=== PATIENT | male | born 1965 | race Caucasian/White ===

== ENCOUNTER 2019-03-09 09:45 | Emergency (ER) | payer BC ==
[~2019-03-09] VITALS: Ht 185.4 cm; Wt 113.4 kg
[2019-03-09 10:05] VITALS: BP_SYST 125
--- NOTE | 2019-03-09 10:05 | NUR ---
Patient to ER bed 4 to gown for evaluation. Side rails up. Report given to Matheus MANDUJANO.
--- NOTE | 2019-03-09 10:09 | NUR ---
Patient is awake, alert, and oriented x4. Patient reports falling down stairs yesterday and striking the back of his head. Patient is complaining of pressure headache 7/10, increased sensation of pressure in left eye, blurry vision in right eye, and nausea. Skin is intact, no abrasions noted to head. Patient denies vomiting, diarrhea.
--- NOTE | 2019-03-09 10:30 | NUR ---
ER Dr. Elizalde at bedside examining patient.
[2019-03-09 11:19] VITALS: BP_SYST 118
--- NOTE | 2019-03-09 11:19 | NUR ---
Patient given written and verbal discharge instructions and verbalizes understanding. ER MD discussed with patient the results and treatment provided. Patient in stable condition. ID arm band removed. Rx of tramadol given. Patient educated on pain management and to follow up with PMD. Pain Scale 0/10. Opportunity for questions provided and answered. Medication side effect fact sheet provided.
== END 2019-03-09 11:19 | disposition home or self-care (01) ==
LOC: SED 09:45
DX: S09.90XA Unspecified injury of head, initial encounter (principal); W10.8XXA Fall (on) (from) other stairs and steps, initial encounter; Y93.01 Activity, walking, marching and hiking; Y92.89 Other specified places as the place of occurrence of the external cause; Y99.8 Other external cause status
CPT/HCPCS: 70450-TC; 99284

== ENCOUNTER 2019-07-18 18:08 | Inpatient (IN) | payer BC ==
[~2019-07-18] VITALS: Ht 185.4 cm; Wt 124.7 kg
[2019-07-18 18:46] VITALS: BP_SYST 118
--- NOTE | 2019-07-18 19:00 | NUR ---
FLU SWAB COLLECTED AND SENT TO LAB
--- NOTE | 2019-07-18 20:17 | NUR ---
Pt report received. Pt c/o fever, sore throat, H/A, body aches with sudden onset last night. Pts present to bedside.
--- NOTE | 2019-07-18 20:17 | NUR ---
BROUGHT BACK TO BED #8 AND TRIAGED. REPORT GIVEN TO COLLEEN
--- NOTE | 2019-07-18 20:40 | NUR ---
DR STANTON AT BEDSIDE FOR EVALUATION
[2019-07-18] MEDS ORDERED: NACL 0.9% 1,000 ML IV ONE ×2 (20:45→23:00)
[2019-07-18] MEDS ORDERED: KETOROLAC TROMETHAMINE 30 MG VIAL IVP ONE (20:45)
--- NOTE | 2019-07-18 20:50 | NUR ---
# 18 gauge angiocath placed to RFA. Use of asceptic technique. Opsite placed over site. Blood return noted. Blood for lab to include Blood Cx and Lactic Acid drawn from site. Flushed with 10 cc of normal saline. No evidence of infiltration noted. Patient tolerated well. Specimen for Strep also collected and sent to lab.
--- NOTE | 2019-07-18 21:10 | NUR ---
Note undone in EDM - 07/18/19 at 2124 by TATY # 18 gauge angiocath placed to RFA. Use of asceptic technique. Opsite placed over site. Blood return noted. Blood for lab drawn from site. Flushed with 10 cc of normal saline. No evidence of infiltration noted. Patient tolerated well.
[2019-07-18 21:20] LABS: BASOPHILS % (AUTO) 0.3 % (0.0-2.0); HEMATOCRIT 42.6 % (36-54); HEMOGLOBIN 14.7 g/dL (14.0-18.0); LYMPHOCYTES # (AUTO) 1.3 K/uL (1.0-5.5); LYMPHOCYTES % (AUTO) 9.7 % (20.5-51.5); MEAN CORPUSCULAR HEMOGLOBIN 31 pg (27-31); MEAN CORPUSCULAR HGB CONC 35 % (32-36); MEAN CORPUSCULAR VOLUME 90 fL (79.0-98.0); MONOCYTES # (AUTO) 0.8 K/uL (0.0-1.0); MONOCYTES % (AUTO) 6.1 % (1.7-9.3); NEUTROPHILS % (AUTO) 83.9 % (40.0-70.0); PLATELET COUNT (AUTO) 210 K/uL (130-430); RED BLOOD CELL COUNT(AUTO) 4.72 MIL/uL (4.2-6.2); RED CELL DISTRIBUTION WIDTH 13.8 % (9.0-15.0); WHITE BLOOD COUNT (AUTO) 13.2 K/uL (4.8-10.8)
[2019-07-18 21:24] LABS: BILIRUBIN,URINE NEGATIVE (NEGATIVE); BLOOD, URINE NEGATIVE (NEGATIVE); CLARITY/URINE CLEAR (CLEAR); GLUCOSE,URINE NEGATIVE (NEGATIVE); KETONES,URINE NEGATIVE (NEGATIVE); LEUKOCYTE ESTERASE ,URINE NEGATIVE (NEGATIVE); NITRITE, URINE NEGATIVE (NEGATIVE); PROTEIN URINE TRACE (NEGATIVE); UROBILINOGEN,URINE 0.2 (0.2-1.0)
[2019-07-18 21:26] LABS: COLOR,URINE AMBER (YELLOW)
--- NOTE | 2019-07-18 21:34 | NUR ---
Pt verbalizes mild improvement in H/A at 01/07. Dr. March notified.
[2019-07-18 21:41] LABS: CALCIUM 8.4 mg/dL (8.4-11.0); CREATININE 1.26 mg/dL (0.55-1.30); POTASSIUM 3.1 mmol/L (3.5-5.1)
[2019-07-18 21:42] LABS: BACTERIA,URINE FEW /HPF (None Seen); MUCUS,URINE 3+ /LPF (None Seen); RBC,URINE 0-3 /HPF (0-3); WBC,URINE 0-3 /HPF (0-3)
[2019-07-18 21:46] LABS: ALBUMIN 3.6 g/dL (3.4-4.8)
[2019-07-18] MEDS ORDERED: POTASSIUM CHLORIDE 20 MEQ TAB.PRT.SR PO ONE (22:00)
[2019-07-18] MEDS ORDERED: MORPHINE 4 MG/ML INJ. SYRINGE IVP ONE (22:00)
[2019-07-18] MEDS ORDERED: AZITHROMYCIN 250 MG TABLET PO ONE (22:00)
[2019-07-18] MEDS ORDERED: ONDANSETRON HCL 4 MG/2 ML VIAL IVP ONE (22:15)
[2019-07-18] MEDS ORDERED: ONDANSETRON HCL 4 MG/2 ML VIAL ONE (22:24)
--- NOTE | 2019-07-18 22:42 | NUR ---
Dr. March at bedside to reassess pt.
--- NOTE | 2019-07-18 22:55 | NUR ---
B/P 96/54, P 84. Pt states that H/A is gradually coming back, currently at 08/10. Dr. March notified. Pt to receive another bolus of NS.
--- NOTE | 2019-07-18 23:15 | NUR ---
Improvement noted to B/P 98/63. Will continue to monitor.
--- NOTE | 2019-07-18 23:18 | NUR ---
Pt to CT via W/C in stable condition.
--- NOTE | 2019-07-18 23:30 | NUR ---
Dominique cavazos in [facility] - 07/19/19 at 0003 by SDEDAJ Pt returns from X-ray.
--- NOTE | 2019-07-18 23:30 | NUR ---
Pt returns from CT.
--- NOTE | 2019-07-18 23:56 | NUR ---
Pt c/o H/A 11/07. B/P 102/67, P 88, T 98.9. Dr. March notified of B/P, Morphine to be held. Pt to receive Imitrex.
[2019-07-19] MEDS: MORPHINE 4 MG/ML INJ. SYRINGE IVP ONE ×2 (00:05→01:54)
[2019-07-19] MEDS ORDERED: SUMAtriptan SUCCINATE 6 MG/0.5 ML VIAL SUBCUT ONE (00:15)
[2019-07-19] MEDS ORDERED: SUMAtriptan SUCCINATE 6 MG/0.5 ML VIAL ONE (00:19)
--- NOTE | 2019-07-19 00:53 | NUR ---
Pt shivering. Temp 102, P 113, B/P 124/63 , 97% SPO2 RA. Denies c/o pain. Dr. March notified.
--- NOTE | 2019-07-19 00:55 | NUR ---
Dr. March at bedside to reassess pt.
--- NOTE | 2019-07-19 01:10 | NUR ---
Dr. March explained need for Lumbar Puncture to R/O meningitis. Pt agrees to procedure and consent signed.
--- NOTE | 2019-07-19 01:25 | NUR ---
Time out performed, verified pt name and . B/P 133/58, P 109, SPO2 98% RA. Dr. March and Cornell Simon RN at bedside.
--- NOTE | 2019-07-19 01:30 | NUR ---
Pt premedicated prior to L/P with Zofran 4 mg and Morphine 4 mg IVP.
[2019-07-19] MEDS ORDERED: LIDOCAINE 1%, 20 ML MDV 20 ML ONE (01:32)
--- NOTE | 2019-07-19 01:32 | NUR ---
Consent signed for Lumbar Puncture. Time out performed with all staff involved just prior to procedure. Lumbar area cleansed with per physician. Physician numbed site with 1% Lidocaine prior to placement. Patient tolerated procedure fair. Unsuccessful L/P attempts x [address] March.
[2019-07-19] MEDS ORDERED: ONDANSETRON HCL 4 MG/2 ML VIAL IVP ONE (01:45)
[2019-07-19] MEDS ORDERED: ONDANSETRON HCL 4 MG/2 ML VIAL ONE (01:55)
[2019-07-19] MEDS ORDERED: cefTRIAXone 1 GM in D5W 50 ML IV ONE (02:15)
[2019-07-19] MEDS ORDERED: ACYCLOVIR IV 500 MG in D5W 100 ML IV ONE (02:15)
[2019-07-19] MEDS ORDERED: ACETAMINOPHEN 500 MG TABLET PO ONE (02:15)
[2019-07-19] MEDS ORDERED: AMPICILLIN SODIUM/SULBACTAM NA 1.5 GM in NS 50 ML IV ONE (02:15)
[2019-07-19] MEDS ORDERED: ACYCLOVIR SODIUM 50 MG/ML VIAL IV ONE (02:29)
[2019-07-19] MEDS ORDERED: AMPICILLIN SODIUM/SULBACTAM NA 1.5 GM VIAL ONE (02:29)
[2019-07-19] MEDS ORDERED: cefTRIAXone 1 GM VIAL ONE (02:29)
[2019-07-19] MEDS ORDERED: NACL 0.9% 1,000 ML IV ONE (02:30)
--- NOTE | 2019-07-19 03:30 | NUR ---
Pt.'s voices concern about pt.s diet during his stay in the hospital. She states that pt has Celiacs disease. Admitting Physician and oncoming shift to be notified.
[2019-07-19] MEDS: NACL 0.9% 1,000 ML IV SCH ×4 (03:42→22:38)
--- NOTE | 2019-07-19 03:51 | NUR ---
Pt AAOx4 talking with . Pt denies c/o pain but states that he feels tired. Pt remains in supine position. SPO2 fluctuates between 88% - 90% RA. Pt placed on O2 at 2 LPM/NC, SPO2 increases to 98%. B/P 99/58. PIV RFA remains patent and secure with NS at 150 mL/hr, no s/s infiltration. Despite 3 L NS boluses received, pt hasn't had the urge to urinate since the intial U/A specimen was collected at 2100. Respirations even and non-labored, BBS clear, mild pitting edema to BLE. Dr. March notified of pt status and verbal order received to place a F/C.
--- NOTE | 2019-07-19 05:00 | NUR ---
Pt voids 300 mL lashay colored urine to urinal.
--- NOTE | 2019-07-19 05:30 | NUR ---
# 16 FR Vasques catheter with use of sterile technique r/t bladder distension and to monitor I/Os. Lidocaine Viscous 2% used with lubrication for comfort. Immediate return of 800 cc lashay colored urine noted. Bedside drainage bag placed below level of bladder. Pt tolerated procedure fair. Mild bladder distension prior to F/C placement. Pt states that he feels some relief to bladder post insertion.
[2019-07-19] MEDS ORDERED: LIDOCAINE VISCOUS 2%, 15 ML UDC MM ONE (05:31)
[2019-07-19] MEDS ORDERED: LIDOCAINE VISCOUS 2%, 15 ML UDC ONE (05:37)
--- NOTE | 2019-07-19 05:51 | NUR ---
Pt.s , Sarah provides her number ([phone]) and states that she is going home for a few hours.
--- NOTE | 2019-07-19 06:21 | NUR ---
ID consultation paged Reason for consultation: Infectious Disease Was consult called: Yes Person who was notified: Ky[employer] Consulting Physician: Dr Garza Three Dimensional Map Modeler Three Dimensional Map Modeler Specialty: Infectious Disease Ordered By: Dr Ko
--- NOTE | 2019-07-19 06:30 | NUR ---
Pt resting quietly with eyes closed, even and nonlabored respirations, VSS.
--- NOTE | 2019-07-19 06:50 | NUR ---
Pt AAOx4, informed that pt able to change positions from laying supine. Pt turns to his right side, no c/o pain or discomfort, no needs verbalized at this time.
--- NOTE | 2019-07-19 07:30 | NUR ---
Pt resting quietly, easily awakened, denies c/o pain or discomfort and no needs verbalized. PIV RFA patent and secure, no s/s infiltration, with NS infusing at 150 mL/hr. F/C patent and secure with total volume of 1200 mL lashay urine to bag. Bag emptied. Temp 100.4, pt to be medicated with Tylenol per PRN admit orders. Pt report given to DELBERT Tracey.
[2019-07-19] MEDS: ACETAMINOPHEN 325 MG TABLET PO PRN (08:05)
--- NOTE | 2019-07-19 08:23 | NUR ---
Patient will be admitted to care of Dr. Ko. Admitted to tele unit. Will go to room 125A. Belongings list completed. Complete and up to date summary report printed. SBAR report to be given at bedside with opportunity for questions. Transfer to Tele via ACLS protocol. Licensed nurse present. IV present no signs or symptoms of infiltration.
--- NOTE | 2019-07-19 08:40 | NUR ---
ADMISSION NOTE Received patient from ER via swathi, received report from VIRAL MANDUJANO. Patient admitted with diagnosis ofSEPSIS . Patient oriented to hospital routine, call light, toileting and safety-patient verbalized understanding.
--- NOTE | 2019-07-19 08:46 | NUR ---
ID consult called: for Dr. Garza, regarding R/O meningitis, ordered by Dr. Ko, spoke with Cara at exchange.
[2019-07-19 08:55] VITALS: BP_SYST 103
--- NOTE | 2019-07-19 09:00 | NUR ---
INITIAL NOTE: RECEIVED PATIENT FROM ER. PATIENT IS AWAKE AND ALERT x4 LAYING DOWN IN BED. PATIENT STATES HE HAS A HEADACHE AND FEELS WEAK. PATIENT IS TOLERATING OXYGEN AT ROOM AIR WITH NO SIGNS OF DISTRESS OR SHORTNESS OF BREATH NOTED. IV SITE IS PATENT WITH NO SIGNS OF INFILTRATION NOTED. FELIX CATHETER INTACT AND DRAINING BY GRAVITY. PATIENT IN STABLE CONDITION. SAFETY, FALL, ASPIRATION AND DROPLET PRECAUTIONS ARE IN PLACE. BED LOCKED IN LOWEST POSITION WITH CALL LIGHT IN REACH. WILL CONTINUE TO MONITOR PATIENT FOR ANY CHANGES.
[2019-07-19] MEDS: OSELTAMIVIR PHOSPHATE 75 MG CAPSULE PO SCH ×2 (09:38→21:37)
[2019-07-19] MEDS ORDERED: POTASSIUM CHLORIDE 20 MEQ TAB.PRT.SR PO ONE (10:15)
--- NOTE | 2019-07-19 10:30 | NUR ---
RN ROUNDS: PATIENT IS AWAKE AND ALERT x4 LAYING DOWN IN BED. FAMILY AT BEDSIDE. NO SIGNS OF DISTRESS OR SHORTNESS OF BREATH NOTED. PATIENT IN STABLE CONDITION. WILL CONTINUE TO MONITOR PATIENT FOR ANY CHANGES.
[2019-07-19] MEDS ORDERED: KETOROLAC TROMETHAMINE 15 MG VIAL IVP PRN (11:00)
[2019-07-19] MEDS ORDERED: KETOROLAC TROMETHAMINE 15 MG VIAL IVP ONE (11:00)
[2019-07-19] MEDS ORDERED: FAMOTIDINE PF 20 MG/2 ML VIAL IVP ONE (11:00)
[2019-07-19] MEDS ORDERED: TAMSULOSIN HCL 0.4 MG CAP PO ONE (11:30)
--- NOTE | 2019-07-19 12:15 | NUR ---
RN ROUNDS: PATIENT IS AWAKE AND ALERT x4 LAYING DOWN IN BED WATCHING TELEVISION. FAMILY AT BEDSIDE. NO SIGNS OF DISTRESS OR SHORTNESS OF BREATH NOTED. PATIENT IN STABLE CONDITION. WILL CONTINUE TO MONITOR PATIENT FOR ANY CHANGES.
[2019-07-19 12:37] VITALS: BP_SYST 110
[2019-07-19 13:02] LABS: BILIRUBIN,URINE NEGATIVE (NEGATIVE); CLARITY/URINE CLEAR (CLEAR); COLOR,URINE YELLOW (YELLOW); GLUCOSE,URINE NEGATIVE (NEGATIVE); KETONES,URINE TRACE (NEGATIVE); LEUKOCYTE ESTERASE ,URINE NEGATIVE (NEGATIVE); NITRITE, URINE NEGATIVE (NEGATIVE); PROTEIN URINE NEGATIVE (NEGATIVE); UROBILINOGEN,URINE 0.2 (0.2-1.0)
[2019-07-19 13:31] LABS: BLOOD, URINE TRACE (NEGATIVE)
[2019-07-19 13:34] LABS: BACTERIA,URINE RARE /HPF (None Seen); RBC,URINE 0-3 /HPF (0-3); WBC,URINE 0-3 /HPF (0-3)
[2019-07-19 14:06] LABS: INFLUENZA A&B ANTIGEN SCREEN NEGATIVE FOR A & B (NEGATIVE); MONOTEST NEGATIVE (NEGATIVE)
--- NOTE | 2019-07-19 14:30 | NUR ---
RN ROUNDS: PATIENT IS AWAKE AND ALERT x4 LAYING DOWN IN BED WATCHING TELEVISION. NO SIGNS OF DISTRESS OR SHORTNESS OF BREATH NOTED. PATIENT IN STABLE CONDITION. WILL CONTINUE TO MONITOR PATIENT FOR ANY CHANGES.
[2019-07-19 14:51] LABS: BASOPHILS % (AUTO) 0.3 % (0.0-2.0); EOSINOPHILS % (AUTO) 0.3 % (0.0-4.0); HEMATOCRIT 37.2 % (36-54); HEMOGLOBIN 12.5 g/dL (14.0-18.0); LYMPHOCYTES # (AUTO) 1.3 K/uL (1.0-5.5); LYMPHOCYTES % (AUTO) 9.7 % (20.5-51.5); MEAN CORPUSCULAR HEMOGLOBIN 31 pg (27-31); MEAN CORPUSCULAR HGB CONC 34 % (32-36); MEAN CORPUSCULAR VOLUME 92 fL (79.0-98.0); MONOCYTES # (AUTO) 0.9 K/uL (0.0-1.0); MONOCYTES % (AUTO) 7.1 % (1.7-9.3); NEUTROPHILS # (AUTO) 10.7 K/uL (1.8-7.7); NEUTROPHILS % (AUTO) 82.6 % (40.0-70.0); PLATELET COUNT (AUTO) 182 K/uL (130-430); RED BLOOD CELL COUNT(AUTO) 4.05 MIL/uL (4.2-6.2); RED CELL DISTRIBUTION WIDTH 13.8 % (9.0-15.0)
[2019-07-19 15:24] LABS: ALBUMIN 2.8 g/dL (3.4-4.8); CALCIUM 7.5 mg/dL (8.4-11.0); CREATININE 1.52 mg/dL (0.55-1.30); TOTAL BILIRUBIN 1.5 mg/dL (0.0-1.0)
[2019-07-19 15:57] LABS: ERYTHROCYTE SEDIMENTATION RATE 27 MM/HR (0-15)
[2019-07-19] MEDS: ACYCLOVIR IV 500 MG in D5W 100 ML IV SCH ×2 (16:02→21:45)
--- NOTE | 2019-07-19 16:39 | NUR ---
RN ROUNDS: PATIENT IS AWAKE AND ALERT x4 LAYING DOWN IN BED. FAMILY AT BEDSIDE. PATIENT STATES HIS HEAD IS STARTING TO HURT AGAIN. WILL CALL MD FOR PAIN MEDICATION. NO SIGNS OF DISTRESS OR SHORTNESS OF BREATH NOTED. PATIENT IN STABLE CONDITION. WILL CONTINUE TO MONITOR PATIENT FOR ANY CHANGES.
[2019-07-19 17:25] VITALS: BP_SYST 107
--- NOTE | 2019-07-19 18:42 | NUR ---
CLOSING NOTES: PATIENT IS ASLEEP LAYING DOWN IN BED. PATIENT IS TOLERATING OXYGEN AT ROOM AIR WITH NO SIGNS OF DISTRESS OR SHORTNESS OF BREATH NOTED. IV SITE IS PATENT WITH NO SIGNS OF INFILTRATION NOTED. FELIX CATHETER INTACT AND DRAINING BY GRAVITY. PATIENT IN STABLE CONDITION. SAFETY, FALL, ASPIRATION AND DROPLET PRECAUTIONS REMAINED IN PLACE THROUGHOUT THE SHIFT. BED LOCKED IN LOWEST POSITION WITH CALL LIGHT IN REACH. WILL ENDORSE PATIENT CARE TO ONCOMING ICT BUSINESS DEVELOPMENT MANAGER NURSE.
--- NOTE | 2019-07-19 19:10 | NUR ---
initial notes: pt is alert, awake, oriented x 4. no pain. no distress. stable. pt has ongoing ivf infusing well. pt has mcintosh catheter draining to yellow urine. pt is ambulatory with steady gait. droplet isolation. explained plan of care. pt verbalized understanding. call light in reach, side rails up. low bed position. will monitor.
[2019-07-19 20:25] VITALS: BP_SYST 91
[2019-07-19] MEDS: POTASSIUM CHLORIDE 20 MEQ TAB.PRT.SR PO SCH (21:37)
[2019-07-19] MEDS: FAMOTIDINE PF 20 MG/2 ML VIAL IVP SCH (21:38)
--- NOTE | 2019-07-19 21:57 | NUR ---
spoke to dr. ayde boone md for sleeping pills per pt request, md order restoril 30mg po every night.
[2019-07-19] MEDS ORDERED: TEMAZEPAM 15 MG CAPSULE PO ONE (22:00)
--- NOTE | 2019-07-19 22:00 | NUR ---
on bed watching tv. no pain. stable. will monitor.
--- NOTE | 2019-07-19 23:52 | NUR ---
sleeping, comfortable. no pain. stable. maintained isolation. will monitor.
[2019-07-20] VITALS: BP_SYST 92
--- NOTE | 2019-07-20 02:01 | NUR ---
sleeping on his side, comfortable. no pain. ivf infusing well. stable. maintained isolation. will monitor.
--- NOTE | 2019-07-20 04:00 | NUR ---
sleeping, no pain. no sob. stable. safety on. call light in reach. will monitor.
--- NOTE | 2019-07-20 06:00 | NUR ---
sleeping, comfortable. not distress. no sob. stable. safety on. call light in reach. will monitor.
[2019-07-20] MEDS: NACL 0.9% 1,000 ML IV SCH ×3 (06:03→19:11)
[2019-07-20] MEDS: ACYCLOVIR IV 500 MG in D5W 100 ML IV SCH ×3 (06:04→22:24)
[2019-07-20 06:34] LABS: BASOPHILS % (AUTO) 0.2 % (0.0-2.0); EOSINOPHILS # (AUTO) 0.1 K/uL (0.0-0.4); EOSINOPHILS % (AUTO) 0.8 % (0.0-4.0); HEMATOCRIT 35.1 % (36-54); HEMOGLOBIN 11.7 g/dL (14.0-18.0); LYMPHOCYTES # (AUTO) 1.2 K/uL (1.0-5.5); LYMPHOCYTES % (AUTO) 12.6 % (20.5-51.5); MEAN CORPUSCULAR HEMOGLOBIN 31 pg (27-31); MEAN CORPUSCULAR HGB CONC 34 % (32-36); MEAN CORPUSCULAR VOLUME 93 fL (79.0-98.0); MONOCYTES # (AUTO) 0.9 K/uL (0.0-1.0); MONOCYTES % (AUTO) 9.4 % (1.7-9.3); NEUTROPHILS # (AUTO) 7.7 K/uL (1.8-7.7); PLATELET COUNT (AUTO) 174 K/uL (130-430); RED BLOOD CELL COUNT(AUTO) 3.77 MIL/uL (4.2-6.2); RED CELL DISTRIBUTION WIDTH 13.8 % (9.0-15.0)
[2019-07-20 06:52] LABS: ALBUMIN 2.4 g/dL (3.4-4.8); CALCIUM 7.7 mg/dL (8.4-11.0); POTASSIUM 3.6 mmol/L (3.5-5.1); TOTAL BILIRUBIN 1.5 mg/dL (0.0-1.0)
--- NOTE | 2019-07-20 07:15 | NUR ---
closing: sleeping, comfortable. not distress. no sob. stable. safety on. call light in reach.=droplet isolation, needs attended the whole shift. bedside report given to am rn..
--- NOTE | 2019-07-20 07:20 | NUR ---
OPENING NOTES PT RESTING IN BED. CHEST RISE AND FALL NOTED. NONLABORED BREATHING NOTED. IV LINE INTACT AND PATENT, NO SIGNS OF INFILTRATION. FLUIDS INFUSING ORDERED PER MD. TOLERATING WELL. NO ACUTE DISTRESS NOTED. FELIX CATHETER INTACT AND PATENT. DRAINING WELL. BED IN LOWEST AND LOCKED POSITION. ALL NEEDS MET. CALL LIGHT IN REACH. FALL, ASPIRATION, AND ISOLATION PRECAUTIONS IN PLACE. CONTINUE TO MONITOR.
[2019-07-20 08:00] VITALS: BP_SYST 102
[2019-07-20 08:06] LABS: FREE PSA 0.1 ng/mL; PROSTATE SPECIFIC AG TOTAL 0.5 ng/mL (0.0-4.0)
[2019-07-20] MEDS: TAMSULOSIN HCL 0.4 MG CAP PO SCH (09:04)
[2019-07-20] MEDS: OSELTAMIVIR PHOSPHATE 75 MG CAPSULE PO SCH ×2 (09:04→22:23)
[2019-07-20] MEDS: FAMOTIDINE PF 20 MG/2 ML VIAL IVP SCH ×2 (09:04→22:23)
[2019-07-20] MEDS: POTASSIUM CHLORIDE 20 MEQ TAB.PRT.SR PO SCH ×2 (09:04→22:23)
--- NOTE | 2019-07-20 09:04 | NUR ---
ROUTINE MEDS ROUTINE MEDS ADMINISTERED ORDERED PER MD. EDUCATION GIVEN. TOLERATED WELL. HOB ELEVATED. NO ACUTE DISTRESS NOTED. FALL, ASPIRATION, AND ISOLATION PRECAUTIONS IN PLACE. ALL NEEDS MET. CALL LIGHT IN REACH. CONTINUE TO MONITOR.
--- NOTE | 2019-07-20 11:00 | NUR ---
ROUNDS PT AWAKE AND ALERT. WATCHING TELEVISION IN BED. NO ACUTE DISTRESS NOTED. ALL NEEDS MET. CALL LIGHT IN REACH. FALL, ASPIRATION, AND ISOLATION PRECAUTIONS IN PLACE. CONTINUE TO MONITOR.
[2019-07-20 12:48] VITALS: BP_SYST 95
--- NOTE | 2019-07-20 13:00 | NUR ---
EMPTY FELIX BAG. TOLERATED WELL. NO ACUTE DISTRESS NOTED. ALL NEEDS MET. CALL LIGHT IN REACH. CONTINUE TO MONITOR.
--- NOTE | 2019-07-20 14:00 | NUR ---
scheduled medication patient resting in bed, visitor present, educated on medication use and side effects, patient verbalized understanding, no signs of distress, no other needs addressed at this time, fall/safety precautions in place.
--- NOTE | 2019-07-20 15:35 | NUR ---
TRANSFERRED PT FROM ROOM 124 TO 115. TOLERATED WELL. NO ACUTE DISTRESS NOTED. BED IN LOWEST AND LOCKED POSITION. FALL, ASPIRATION, AND ISOLATION PRECAUTIONS IN PLACE. ALL NEEDS MET. CALL LIGHT IN REACH. CONTINUE TO MONITOR.
--- NOTE | 2019-07-20 16:09 | NUR ---
DISCONTINUE FELIX CATHETER FELIX CATHETER TAKEN OUT ORDERED PER MD. EDUCATION GIVEN. TOLERATED WELL. AT BEDSIDE. NO ACUTE DISTRESS NOTED. FALL, ASPIRATION, AND ISOLATION PRECAUTIONS IN PLACE. ALL NEEDS MET. CALL LIGHT IN REACH. CONTINUE TO MONITOR.
[2019-07-20 16:46] VITALS: BP_SYST 103
--- NOTE | 2019-07-20 19:05 | NUR ---
CLOSING NOTE PT AWAKE, ALERT, AND ORIENTED. IV LINE INTACT AND PATENT, NO SIGNS OF INFILTRATION. FLUIDS INFUSING ORDERED PER MD. TOLERATING WELL. NO ACUTE DISTRESS NOTED. PT VOIDED MULTIPLE TIMES TODAY AFTER DISCONTINUING FELIX CATHETER. BED IN LOWEST AND LOCKED POSITION. ALL NEEDS MET. CALL LIGHT IN REACH. FALL, ASPIRATION, AND ISOLATION PRECAUTIONS IN PLACE. WILL ENDORSE TO NOC NURSE.
[2019-07-20 20:00] VITALS: BP_SYST 101
--- NOTE | 2019-07-20 21:00 | NUR ---
pt recieved awake alert and oriented x4 pt is on droplet isolation room, pt on antiviral medication . pt is afible pt will be monitored through the night .
[2019-07-20] MEDS: TEMAZEPAM 15 MG CAPSULE PO SCH (22:23)
[2019-07-21] VITALS: BP_SYST 110
--- NOTE | 2019-07-21 | NUR ---
pt recieved restoril for sleep. vital sign stable . pt on iv ns at 100cc/hr . will montor pt through the night
--- NOTE | 2019-07-21 05:00 | NUR ---
pt still sleeping . pt given anti viral medication this money . will continue to monitor pt
[2019-07-21] MEDS: NACL 0.9% 1,000 ML IV SCH ×2 (05:11→10:15)
[2019-07-21] MEDS: ACYCLOVIR IV 500 MG in D5W 100 ML IV SCH ×2 (06:49→14:06)
--- NOTE | 2019-07-21 07:30 | NUR ---
INITIAL NOTE PT RESTING, NO ACUTE DISTRESS NOTED, BREATHING EVEN AND UNLABORED. CALL LIGHT WITHIN REACH, BED IN LOW AND LOCKED POSITION WITH BED ALARM ON. Addendum: 07/21/19 at 1852 by Mayte Samson RN IVF INFUSING WELL. DROPLET PRECAUTIONS IN PLACE.
[2019-07-21 07:47] LABS: BASOPHILS % (AUTO) 0.6 % (0.0-2.0); EOSINOPHILS # (AUTO) 0.2 K/uL (0.0-0.4); EOSINOPHILS % (AUTO) 3.1 % (0.0-4.0); HEMATOCRIT 37.6 % (36-54); HEMOGLOBIN 12.6 g/dL (14.0-18.0); LYMPHOCYTES % (AUTO) 18.1 % (20.5-51.5); MEAN CORPUSCULAR HEMOGLOBIN 31 pg (27-31); MEAN CORPUSCULAR HGB CONC 34 % (32-36); MEAN CORPUSCULAR VOLUME 91 fL (79.0-98.0); MONOCYTES # (AUTO) 0.5 K/uL (0.0-1.0); MONOCYTES % (AUTO) 9.3 % (1.7-9.3); NEUTROPHILS # (AUTO) 3.9 K/uL (1.8-7.7); NEUTROPHILS % (AUTO) 68.9 % (40.0-70.0); PLATELET COUNT (AUTO) 209 K/uL (130-430); RED BLOOD CELL COUNT(AUTO) 4.11 MIL/uL (4.2-6.2); RED CELL DISTRIBUTION WIDTH 13.3 % (9.0-15.0); WHITE BLOOD COUNT (AUTO) 5.7 K/uL (4.8-10.8)
[2019-07-21 08:00] VITALS: BP_SYST 107
[2019-07-21 08:02] LABS: CALCIUM 7.4 mg/dL (8.4-11.0); CREATININE 0.88 mg/dL (0.55-1.30)
--- NOTE | 2019-07-21 09:30 | NUR ---
RN ROUNDS PT AWAKE, DENIES ANY DISCOMFORT OR COUGH, AT BEDSIDE. WILL CONTINUE TO MONITOR.
[2019-07-21] MEDS: FAMOTIDINE PF 20 MG/2 ML VIAL IVP SCH ×2 (10:14→20:32)
[2019-07-21] MEDS: OSELTAMIVIR PHOSPHATE 75 MG CAPSULE PO SCH ×2 (10:14→20:33)
[2019-07-21] MEDS: TAMSULOSIN HCL 0.4 MG CAP PO SCH (10:14)
[2019-07-21] MEDS: POTASSIUM CHLORIDE 20 MEQ TAB.PRT.SR PO SCH ×2 (10:14→20:33)
--- NOTE | 2019-07-21 11:30 | NUR ---
RN ROUNDS PT AWAKE, NO CHANGE IN ASSESSMENT, WILL CONTINUE TO MONITOR.
[2019-07-21 12:00] VITALS: BP_SYST 104
--- NOTE | 2019-07-21 13:30 | NUR ---
RN ROUNDS PT RESTING, NO ACUTE DISTRESS NOTED, BREATHING EVEN AND UNLABORED.
[2019-07-21] MEDS ORDERED: CHOLECALCIFEROL (VITAMIN D3) 2,000 UNIT TABLET PO ONE (15:30)
[2019-07-21] MEDS ORDERED: CALCIUM 500 MG/TAB PO ONE (15:30)
--- NOTE | 2019-07-21 15:30 | NUR ---
RN ROUNDS PT AWAKE, NO CHANGE IN ASSESSMENT, WILL CONTINUE TO MONITOR.
[2019-07-21 16:00] VITALS: BP_SYST 107
--- NOTE | 2019-07-21 16:01 | NUR ---
Dietitian Recommendations * Recommend regular, gluten-free diet [address] Please refer to Nutrition Assessment for details. Addendum: 07/21/19 at [address] Amended: Links added.
[2019-07-21] MEDS: ACETAMINOPHEN 325 MG TABLET PO PRN (17:41)
--- NOTE | 2019-07-21 18:29 | NUR ---
CRITICAL LAB/DR. JOHNSON SPOKE WITH DR. JOHNSON, INFORMED MD THROAT CULTURES ARE POSITIVE FOR STREPTOCOCCUS GROUP A. MD TO DISCONTINUE ZOVIRAX, AND NEW ORDER FOR AMPICILLIN, VERIFIED ORDER WITH READ BACK.
[2019-07-21] MEDS ORDERED: AMPICILLIN SODIUM 1 GM in NS 50 ML IV ONE (18:40)
--- NOTE | 2019-07-21 18:54 | NUR ---
CLOSING NOTE PT AWAKE, WATCHING TELEVISION. DENIES ANY COUGH, FEVER, OR DISCOMFORT. IVF INFUSING WELL. ALL NEEDS MET THROUGHOUT SHIFT. CALL LIGHT WITHIN REACH, BED IN LOW AND LOCKED POSITION WITH BED ALARM ON. DROPLET PRECAUTIONS IN PLACE. WILL CONTINUE TO MONITOR UNTIL PT CARE IS ENDORSED TO ASSISTANT SOFTBALL COACH RN.
--- NOTE | 2019-07-21 19:30 | NUR ---
Pt is fully awake, alert and oriented x4. No c/o pain and no acute distress noted. IVF is infusing well at 50ml/hr in RFA. Fall, droplet isolation and safety precautions are in place.
[2019-07-21 20:00] VITALS: BP_SYST 113
[2019-07-21] MEDS: TEMAZEPAM 15 MG CAPSULE PO SCH (20:33)
[2019-07-21] MEDS: CALCIUM 500 MG/TAB PO SCH (20:33)
--- NOTE | 2019-07-21 21:00 | NUR ---
Pt is awake and not in any distress. IVF is infusing well in RFA at 50ml/hr. Fall and safety precautions are in place.
--- NOTE | 2019-07-21 23:00 | NUR ---
Pt is sleeping without any distress noted. IVF is infusing well in RFA. Fall and safety precautions are in place.
[2019-07-22] MEDS: NACL 0.9% 1,000 ML IV SCH (00:50)
[2019-07-22] MEDS: AMPICILLIN SODIUM 1 GM in NS 50 ML IV SCH ×4 (00:52→18:01)
--- NOTE | 2019-07-22 00:52 | NUR ---
Pt is resting comfortably in bed without any respiratory distress noted. Scheduled IV Antibiotic hung. IV site is without any signs of infiltration. Fall and safety precautions are in place. Pt remains in Droplet Isolation.
--- NOTE | 2019-07-22 03:00 | NUR ---
Pt is sleeping comfortably in bed. IVF is infusing well in RFA. Call light is with pt and bed is in the lowest and locked positions.
--- NOTE | 2019-07-22 05:00 | NUR ---
Pt is resting comfortably in bed. Fall and safety precautions are in place.
--- NOTE | 2019-07-22 06:42 | NUR ---
Pt is resting comfortably in bed. All pt's needs were attended to. IVF is infusing well in RFA without any signs of infiltration. Fall and safety precautions are in place. Pt remains in Droplet Isolation. Will endorse to day shift nurse.
[2019-07-22 07:38] LABS: CALCIUM 8.7 mg/dL (8.4-11.0); CREATININE 0.97 mg/dL (0.55-1.30); POTASSIUM 4.2 mmol/L (3.5-5.1)
[2019-07-22 08:06] LABS: WEST NILE VIRUS, IgG, SERUM Negative (Negative)
[2019-07-22] MEDS: ACETAMINOPHEN 325 MG TABLET PO PRN ×4 (08:24→14:54)
[2019-07-22] MEDS: CALCIUM 500 MG/TAB PO SCH ×2 (08:25→21:25)
[2019-07-22] MEDS: TAMSULOSIN HCL 0.4 MG CAP PO SCH (08:26)
[2019-07-22] MEDS: FAMOTIDINE PF 20 MG/2 ML VIAL IVP SCH ×2 (08:35→21:25)
[2019-07-22] MEDS: OSELTAMIVIR PHOSPHATE 75 MG CAPSULE PO SCH ×2 (08:35→21:25)
[2019-07-22] MEDS: CHOLECALCIFEROL (VITAMIN D3) 2,000 UNIT TABLET PO SCH (08:35)
[2019-07-22] MEDS: POTASSIUM CHLORIDE 20 MEQ TAB.PRT.SR PO SCH ×2 (10:11→21:25)
[2019-07-22 12:26] VITALS: BP_SYST 106
[2019-07-22] MEDS ORDERED: GADOPENTETATE DIMEGLUMINE 5 ML VIAL IV ONE ×2 (12:35→12:42)
[2019-07-22 16:00] VITALS: BP_SYST 104
--- NOTE | 2019-07-22 19:30 | NUR ---
Opening notes Received report. Patient resting in bed, watching TV. No signs of distress noted. Breathing even and unlabored. IV patent and intact, infusing fluids. No needs at this time. Call light with the patient. Safety precautions in place.
[2019-07-22 20:00] VITALS: BP_SYST 107
[2019-07-22] MEDS: TEMAZEPAM 15 MG CAPSULE PO SCH (21:25)
--- NOTE | 2019-07-22 21:25 | NUR ---
Medications given. Educated the action and side effects of medications. Patient verbalized understanding and tolerated well. Provide patient with water. No other needs. Call light with the patient. Safety precautions in place.
[2019-07-23] VITALS: BP_SYST 100
--- NOTE | 2019-07-23 | NUR ---
Resting Patient resting in bed. No signs of distress noted. Breathing even and unlabored. IVF infusing well. Provided patient with pillow. No other needs. Call light with the patient. Safety precautions in place.
[2019-07-23] MEDS: AMPICILLIN SODIUM 1 GM in NS 50 ML IV SCH ×3 (00:03→11:39)
[2019-07-23] MEDS: NACL 0.9% 1,000 ML IV SCH (00:04)
--- NOTE | 2019-07-23 02:00 | NUR ---
Sleeping Patient sleeping. No signs of distress noted. Breathing even and unlabored. IVF infusing well. No needs. Call light with the patient. safety precautions in place.
--- NOTE | 2019-07-23 04:19 | NUR ---
Sleeping No signs of distress noted. Breathing even and unlabored. IVF infusing well. Call light with the patient. Safety precautions in place.
[2019-07-23] MEDS: ACETAMINOPHEN 325 MG TABLET PO PRN (06:05)
--- NOTE | 2019-07-23 06:50 | NUR ---
Closing notes Patient resting comfortably in bed. No signs of distress noted. Breathing even and unlabored. Patient denies pain. IV patent and intact, no signs of infiltration noted. All needs met throughout the shift. Call light with the patient. Safety precautions in place. Will endorse care to day shift RN.
--- NOTE | 2019-07-23 07:28 | NUR ---
OPENING NOTE Patient resting in the bed. No acute distress. AAO x 4. Denied of pain. Skin warm and dry to touch. IV intact to left wrist, no redness, no swelling, no drainage. On NS at 50ml/hr, infusing well. Discussed the safety issue, use call light when needs help, verbally understanding. Safety measure maintained. Call light within reached. Bed locked in low position, side rails up. Refused bed alarm, risk and benefit explained, verbally understanding. Will continue to monitor.
[2019-07-23 07:34] LABS: BASOPHILS % (AUTO) 0.4 % (0.0-2.0); EOSINOPHILS # (AUTO) 0.2 K/uL (0.0-0.4); EOSINOPHILS % (AUTO) 2.6 % (0.0-4.0); HEMOGLOBIN 13.2 g/dL (14.0-18.0); LYMPHOCYTES # (AUTO) 1.7 K/uL (1.0-5.5); LYMPHOCYTES % (AUTO) 21.6 % (20.5-51.5); MEAN CORPUSCULAR HEMOGLOBIN 31 pg (27-31); MEAN CORPUSCULAR HGB CONC 33 % (32-36); MEAN CORPUSCULAR VOLUME 92 fL (79.0-98.0); MONOCYTES # (AUTO) 0.6 K/uL (0.0-1.0); MONOCYTES % (AUTO) 7.8 % (1.7-9.3); NEUTROPHILS # (AUTO) 5.3 K/uL (1.8-7.7); NEUTROPHILS % (AUTO) 67.6 % (40.0-70.0); PLATELET COUNT (AUTO) 281 K/uL (130-430); RED BLOOD CELL COUNT(AUTO) 4.33 MIL/uL (4.2-6.2); RED CELL DISTRIBUTION WIDTH 13.7 % (9.0-15.0)
[2019-07-23 07:46] LABS: WHITE BLOOD COUNT (AUTO) 7.9 K/uL (4.8-10.8)
[2019-07-23 07:50] VITALS: BP_SYST 112
[2019-07-23 07:53] LABS: CREATININE 0.98 mg/dL (0.55-1.30); POTASSIUM 4.7 mmol/L (3.5-5.1)
[2019-07-23] MEDS: CHOLECALCIFEROL (VITAMIN D3) 2,000 UNIT TABLET PO SCH (09:38)
[2019-07-23] MEDS: TAMSULOSIN HCL 0.4 MG CAP PO SCH (09:38)
[2019-07-23] MEDS: CALCIUM 500 MG/TAB PO SCH (09:38)
[2019-07-23] MEDS: FAMOTIDINE PF 20 MG/2 ML VIAL IVP SCH (09:38)
[2019-07-23] MEDS: POTASSIUM CHLORIDE 20 MEQ TAB.PRT.SR PO SCH (09:39)
[2019-07-23] MEDS: OSELTAMIVIR PHOSPHATE 75 MG CAPSULE PO SCH (09:39)
--- NOTE | 2019-07-23 09:45 | NUR ---
AM SCHEDULE MED GIVEN, TOLERATED WELL.
--- NOTE | 2019-07-23 11:41 | NUR ---
AMPICILLIN IVPB HANG Patient resting in the bed. No acute distress. IV intact, Ampicillin IVPB hang. at bedside. Safety measure maintained. Call light within reached. Continue to monitor.
[2019-07-23] MEDS ORDERED: AMOX-426 PO (11:46)
[2019-07-23] MEDS ORDERED: VITD2000 PO (11:50)
[2019-07-23] MEDS ORDERED: TAMS0.4C96 PO (11:50)
[2019-07-23] MEDS ORDERED: LACT1CAP61 PO (11:50)
[2019-07-23 12:30] VITALS: BP_SYST 107
--- NOTE | 2019-07-23 12:45 | NUR ---
SEEN AND EXAMINED BY LEIGH ROBB WITH DISCHARGE ORDER.
[2019-07-23 13:41] VITALS: BP_SYST 107
--- NOTE | 2019-07-23 14:55 | NUR ---
late entry due to pt care D/C Patient Patient given medication reconciliation form and D/C instructions. Exit Care provided. Patient verbalized understanding. MD discussed with patient the results and treatment provided. Ambulatory with steady gait for discharge to home. Patient in stable condition, ID band removed. IV catheter removed, intact and dressing applied, no active bleeding.. Patient educated on pain management. All belongings sent with patient.pt went home with .
== END 2019-07-23 15:00 | disposition home or self-care (01) | DRG 153 ==
LOC: SED 18:08 → STU 07-19 02:43 → SMU 07-19 08:19 → STU 07-19 08:19 → SMU 07-20 16:53
PROVIDERS: ADMIT Internal Medicine; ATTEND Internal Medicine
PROC: 00JU3ZZ Inspection of Spinal Canal, Percutaneous Approach (ICD-10-PCS; principal; 2019-07-18)
DX: J11.1 Influenza due to unidentified influenza virus with other respiratory manifestations (principal); M54.2 Cervicalgia; E66.9 Obesity, unspecified; R30.0 Dysuria; N40.1 Benign prostatic hyperplasia with lower urinary tract symptoms; R33.8 Other retention of urine; E83.51 Hypocalcemia; J02.0 Streptococcal pharyngitis; E87.6 Hypokalemia; B95.0 Streptococcus, group A, as the cause of diseases classified elsewhere; K90.0 Celiac disease; Z91.018 Allergy to other foods; Z68.36 Body mass index [BMI] 36.0-36.9, adult
CPT/HCPCS: 36415; 70450-TC; 70553; 71045; 80048; 80053; 81000-TC; 83605; 83735-TC; 84153; 85025; 85651-TC; 86308-TC; 86403; 86694; 86710; 86788; 86789; 87040-TC; 87081; 87086; 96365; 96375; 99285; A9579; G0378; G9035; J0133; J0290; J0295; J0696; J1885; J2001; J2270; J2405; J3030; J3490; J7030; J7060; Q0144

== ENCOUNTER 2021-02-18 13:13 | Emergency (ER) | payer BC, SELFPAY ==
[~2021-02-18] VITALS: Ht 185.4 cm; Wt 102.1 kg
[~2021-02-18 13:13] MED LIST: AMOX-426 PO; LACT1CAP61 PO; TAMS0.4C96 PO; VITD2000 PO
[2021-02-18 13:21] VITALS: BP_SYST 118
[2021-02-18 15:00] VITALS: BP_SYST 118
[2021-02-18] MEDS ORDERED: ZINC50TA69 PO (15:24)
[2021-02-18] MEDS ORDERED: IVER3TAB PO (15:24)
[2021-02-18 15:48] LABS: HEMOGLOBIN 15.4 g/dL (14.0-18.0); MEAN CORPUSCULAR VOLUME 90 fL (79.0-98.0); RED CELL DISTRIBUTION WIDTH 13.6 % (9.0-15.0); WHITE BLOOD COUNT (AUTO) 8.9 K/uL (4.8-10.8)
[2021-02-18 15:59] LABS: BASOPHILS % (AUTO) 0.4 % (0.0-2.0); EOSINOPHILS # (AUTO) 0.1 K/uL (0.0-0.4); EOSINOPHILS % (AUTO) 0.8 % (0.0-4.0); HEMATOCRIT 44.8 % (36-54); LYMPHOCYTES # (AUTO) 1.1 K/uL (1.0-5.5); LYMPHOCYTES % (AUTO) 12.2 % (20.5-51.5); MEAN CORPUSCULAR HEMOGLOBIN 31 pg (27-31); MEAN CORPUSCULAR HGB CONC 34 % (32-36); MONOCYTES # (AUTO) 0.8 K/uL (0.0-1.0); MONOCYTES % (AUTO) 9.5 % (1.7-9.3); NEUTROPHILS # (AUTO) 6.9 K/uL (1.8-7.7); NEUTROPHILS % (AUTO) 77.1 % (40.0-70.0); PLATELET COUNT (AUTO) 227 K/uL (130-430); RED BLOOD CELL COUNT(AUTO) 4.97 MIL/uL (4.2-6.2)
[2021-02-18 16:09] LABS: C-REACTIVE PROTEIN QUANT 8.7 mg/dL (0-0.5)
[2021-02-18 16:14] LABS: ALBUMIN 3.8 g/dL (3.4-4.8); CALCIUM 9.2 mg/dL (8.4-11.0); CREATININE 1.19 mg/dL (0.55-1.30); POTASSIUM 3.9 mmol/L (3.5-5.1); TOTAL BILIRUBIN 1.6 mg/dL (0.0-1.0)
[2021-02-18 16:16] LABS: PROTHROMBIN TIME 10.4 SECS (9.5-12.5)
== END 2021-02-18 15:00 | disposition home or self-care (01) ==
LOC: SED 13:13
DX: U07.1 COVID-19 (principal); Z79.899 Other long term (current) drug therapy; Z91.018 Allergy to other foods
CPT/HCPCS: 36415; 71045; 80053; 82550; 82728; 83605; 83615; 83880; 84484; 85025; 85379; 85384; 85610-TC; 85730-TC; 86140; 87040-TC; 93005; 99285